=== PATIENT | male | born 1985 | race Caucasian/White ===

== ENCOUNTER → 2019-06-17 23:36 | Emergency (ER) | payer BC, OTHER ==
[~2019-06-17] VITALS: Ht 177.8 cm; Wt 86.2 kg
[~2019-06-17 23:36] MED LIST: HYDROcodone-ACET 10/325MG TAB PO ONE; LIDOCAINE W/ EPINEPHRINE 2% INJ 20ML VIAL IJ ONE; TETANUS-DIPTH-ACEL PERTUSSIS 0.5ML SYRG IM ONE; cefTRIAXone SOD 1,000 MG VL IM ONE
[2019-06-18 03:21] VITALS: BP 148/95
== END | disposition home or self-care (01) ==
LOC: ER 23:36
DX: S61.411A Laceration without foreign body of right hand, initial encounter (principal); W25.XXXA Contact with sharp glass, initial encounter; Y93.89 Activity, other specified; Y99.8 Other external cause status; Y92.89 Other specified places as the place of occurrence of the external cause
CPT/HCPCS: 73130; 90471; 96372